=== PATIENT | female | born 1990 | race Caucasian/White ===

== ENCOUNTER 2017-05-04 17:13 | Emergency (ER) | payer SELFPAY ==
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
== END 2017-05-04 23:30 | disposition home or self-care (01) ==
LOC: ER 17:13
DX: S10.91XA Abrasion of unspecified part of neck, initial encounter (principal); V59.9XXA Occupant (driver) (passenger) of pick-up truck or van injured in unspecified traffic accident, initial encounter; Y93.89 Activity, other specified; Y92.488 Other paved roadways as the place of occurrence of the external cause; Y99.8 Other external cause status
CPT/HCPCS: 72050-TC; 73030-TC-RT; 73110-TC-RT; 73140-TC-F5; 73140-TC-FA; 73610-TC; 81025-TC; Z7502

== ENCOUNTER 2017-05-09 23:27 | Emergency (ER) | payer SELFPAY ==
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
== END 2017-05-10 00:53 | disposition home or self-care (01) ==
LOC: ER 23:27
DX: M54.9 Dorsalgia, unspecified (principal); M25.512 Pain in left shoulder; M25.511 Pain in right shoulder; R51 Headache; R07.89 Other chest pain
CPT/HCPCS: Z7610